=== PATIENT | male | born 1985 | race Caucasian/White ===

== ENCOUNTER 2016-12-10 23:17 | Emergency (ER) | payer SELFPAY ==
[~2016-12-10] VITALS: Ht 188 cm; Wt 94.0 kg
[2016-12-10] MEDS ORDERED: MELA1TAB22 PO (23:52)
[2016-12-11 00:48] LABS: BLOOD UREA NITROGEN 15 mg/dL (7-18)
[2016-12-11 01:55] VITALS: BP 128/70
== END 2016-12-11 02:20 | disposition home or self-care (01) ==
LOC: ED 23:59
DX: R20.2 Paresthesia of skin (principal)
CPT/HCPCS: 36415; 70450; 80048; 82040; 85025; 93005; 99285